=== PATIENT | female | born 1955 | race Caucasian/White ===

== ENCOUNTER 2024-08-21 06:17 | Day surgery (SDC) | payer OTHER, SELFPAY ==
[2024-08-21 06:30] VITALS: BP 138/63
[2024-08-21 06:55] VITALS: BP 138/63
[2024-08-21] MEDS: NSS 500 IV (07:12)
[2024-08-21] MEDS: PERIDEX 0.12% ORAL RINSE 15 ML PO (07:12)
[2024-08-21] MEDS: BACTROBAN NASAL 1 GRAM NASAL (07:12)
[2024-08-21 07:14] VITALS: BMI 30.2
[2024-08-21 07:18] LABS: Hematocrit 36.9 % (37.0-47.0); Hemoglobin 11.8 g/dL (12.0-16.0); Mean Corpuscular Hgb 27.8 pg (27.0-31.0); Mean Platelet Volume 9.1 fL (7.4-10.4); Platelet Count 398 10^3/uL (130-400); Red Blood Cell Count 4.24 10^6/uL (4.20-5.40); Red Cell Dist. Width 12.5 % (11.5-14.5); White Blood Cell Count 8.4 10^3/uL (4.8-10.8)
[2024-08-21 07:24] LABS: PT 13.5 Sec (11.4-14.6)
--- NOTE | 2024-08-21 07:30 | W.SUR.PREOP ---
Pre-Operative Surgical Note
-
I have examined this patient prior to the performance of the scheduled procedure.
The patient's condition is unchanged from the time of the current History and
Physical and the patient is able to undergo the scheduled procedure.
Discussed extensively with patient and her procedure, risks/benefits/alternatives and our role in management. She understands all and wishes to proceed.
[2024-08-21 08:23] LABS: Blood Urea Nitrogen 20 mg/dl (7-17); Calcium 8.5 mg/dl (8.4-10.2); Carbon Dioxide 29 mmol/L (22-30); Chloride 104 mmol/L (98-107); Estimated Creatinine Clearance 92 ml/min; Glucose 101 mg/dl (70-99); Potassium 3.8 mmol/L (3.5-5.1); Sodium 140 mmol/L (135-145); eGFR > 60.00
--- NOTE | 2024-08-21 08:40 | W.SUR.POST ---
Surgical Immediate Post Op
Note
Pre Op Diagnosis: MARTINS
Post Op Diagnosis: MARTINS
Procedure Performed: BL TAB
Primary Surgeon: Joe
Assist: Aleksandar GOODMAN
Anesthesia: Local and sedation
Estimated Blood Loss: 2cc
Fluids: see anesthesia flow sheet
Drains/Shunts: None
Specimens/Cultures: None
Doppler/Duplex/Angio (Y/N): Y
Complications: None
Operative Findings: successful biopsy
[2024-08-21 08:45] VITALS: BP 119/55; BP 138/63
[2024-08-21 09:00] VITALS: BP 125/66
[2024-08-21 09:15] VITALS: BP 120/60
[2024-08-21 09:40] VITALS: BP 134/61
--- NOTE | 2024-08-21 14:14 | OR.RPT ---
Operative Report
Operative Report
PROCEDURE DATE: 08/21/2024
Preoperative diagnosis: Temporal arteritis
Postoperative diagnosis: Same
Procedure: Bilateral superficial temporal artery biopsies.
Surgeon: Joe
Senior Specialist: Aleksandar, required for all aspects of procedure including assistance with traction/countertraction, assistance with closure.
Complications: None
Anesthesia: Local, sedation
Indications for procedure:
Concern for temporal arteritis. Referred by her primary care for this concern for temporal artery biopsies. Risk/benefit/alternatives also discussed with the patient. She understood all wished to proceed.
Description of procedure:
Patient was identified brought to the operating room placed on the table in supine position. After the adequate administration of anesthesia and perioperative antibiotics she was prepped and draped in the standard surgical fashion. A standard
preoperative timeout was undertaken and everybody was in agreement the plan. A longitudinal incision was made in the synagogue/scalp a few centimeters anterior and superior to the superiormost aspect of the pinna of the right ear (overlying the
palpable pulsation of the artery) after infiltration of the skin and subcutaneous tissue with 1% lidocaine. This was carried down through the subcutaneous layer and the fascia layer with electrocautery. The superficial temporal artery was
identified. It was mobilized using sharp dissection. It was then ligated proximally and distally as well as a branch ligated all with silk ties and a clip. I then transected the artery. This was then sent for specimen.
A similar incision was made in the left synagogue/scalp a few centimeters anterior and superior to the superiormost aspect of the pinna of the left ear (overlying the palpable pulsation of the artery) after infiltration of the skin and subcutaneous
tissue with 1% lidocaine. Similarly this was carried down through the subcutaneous tissue and fascial layer with the electrocautery. The superficial temporal artery was identified and was mobilized using sharp dissection. It was then ligated
proximally and distally as well as a branch ligated all with silk ties and a clip. I then transected the artery. This was then sent for specimen.
Both incision sites were then irrigated. Hemostasis was achieved and confirmed. I then closed in layers using 3-0 Vicryl deep dermal layer followed by 4-0 Monocryl subcuticular running layer (this was completed bilaterally). Dermabond was then
applied bilaterally. Patient tolerated procedure well.
== END 2024-08-21 10:00 | disposition home or self-care (01) ==
LOC: CATH 06:17
PROVIDERS: ATTENDING PHYSICIAN Surgery Vascular Surgery; FAMILY PHYSICIAN Student in an Organized Health Care Education/Training Program
DX: G44.89 Other headache syndrome (principal); F41.9 Anxiety disorder, unspecified; Z87.891 Personal history of nicotine dependence
CPT/HCPCS: 37609; 88305; 80048; 85027; 85610; 85730; 86900; 86901; 88313; 88341; 88342; 93005

== ENCOUNTER → 2024-09-02 12:56 | Outpatient (REF) | payer OTHER, SELFPAY ==
[2024-09-02 14:40] LABS: Blood Urea Nitrogen 17 mg/dl (7-17); Carbon Dioxide 27 mmol/L (22-30); Chloride 104 mmol/L (98-107); Glucose 89 mg/dl (70-99); Potassium 4.4 mmol/L (3.5-5.1); Sodium 140 mmol/L (135-145); eGFR > 60.00
== END ==
LOC: RAD 12:56
DX: I77.6 Arteritis, unspecified (principal); M31.6 Other giant cell arteritis
CPT/HCPCS: 36415; 70496; 80048; Q9967